=== PATIENT | male | born 1950 | race Caucasian/White ===

== ENCOUNTER 2017-04-30 22:42 | Emergency (ER) | payer OTHER ==
[~2017-04-30] VITALS: Ht 177.8 cm; Wt 93.0 kg
[2017-04-30] MEDS ORDERED: HYDROmorphone 2 MG/ML, 1ML IVPush PRN (23:30)
[2017-04-30] MEDS ORDERED: SODIUM CHLORIDE FLUSH 10ML SYR IVF ONE (23:30)
[2017-04-30] MEDS ORDERED: HYDROmorphone 1 MG/ML, 1ML ONE (23:31)
[2017-04-30 23:43] LABS: BASOPHILS # (AUTO) 0.08 x10^3/uL (0-0.1); BASOPHILS % (AUTO) 1 % (0-1); EOSINOPHILS # (AUTO) 0.11 x10^3/uL (0-0.4); EOSINOPHILS % (AUTO) 1 % (1-7); LYMPHOCYTES # (AUTO) 2.31 x10^3/uL (1-3.4); LYMPHOCYTES % (AUTO) 25 % (22-44); MD NO; MEAN CORPUSCULAR HEMOGLOBIN 29.4 pg (27.5-34.5); MEAN CORPUSCULAR HGB CONC 33.8 g/dL (33.2-36.2); MEAN CORPUSCULAR VOLUME 87.1 fL (81-97); MEAN PLATELET VOLUME 6.8 fL (7.4-10.4); MONOCYTES # (AUTO) 0.69 x10^3/uL (0.2-0.8); MONOCYTES % (AUTO) 7 % (2-9); NEUTROPHILS # (AUTO) 6.14 x10^3/uL (1.8-6.8); NEUTROPHILS % (AUTO) 66 % (42-75); PLATELET COUNT 267 x10^3/uL (130-400); RED BLOOD COUNT 5.08 x10^6/uL (4.38-5.82); RED CELL DISTRIBUTION WIDTH 14.9 % (9.4-14.8)
[2017-04-30 23:51] LABS: ALBUMIN 3.4 g/dL (3.4-5.0); ANION GAP 10 mmol/L (5-15); CALCIUM 8.7 mg/dL (8.5-10.1); CHLORIDE 105 mmol/L (98-107); CREATININE 1.08 mg/dL (0.7-1.3)
[2017-05-01] MEDS ORDERED: OMNIPAQUE 350 MG/ML, 100ML BOTTLE ONE (00:22)
[2017-05-01 00:50] VITALS: BP 127/82
== END 2017-05-01 02:21 | disposition home or self-care (01) ==
LOC: ED 05-01 02:00
DX: M25.552 Pain in left hip (principal); I10 Essential (primary) hypertension; Z86.14 Personal history of Methicillin resistant Staphylococcus aureus infection
CPT/HCPCS: 36415; 73701; 80048; 82040; 83605; 85025; 87040; 96374; 99285; J1170; Q9967

== ENCOUNTER 2017-05-02 02:12 | Emergency (ER) | payer OTHER ==
[~2017-05-02] VITALS: Ht 177.8 cm; Wt 71.0 kg
[2017-05-02] MEDS ORDERED: VANCOMYCIN 1,500 MG in SODIUM CHLORIDE 0.9% 250 ML IV ONE (02:30)
[2017-05-02] MEDS ORDERED: VANCOMYCIN PER PHARMACY IV ONE (02:30)
[2017-05-02] MEDS ORDERED: SODIUM CHLORIDE 0.9% 1,000ML IVBOLUS ONE (02:30)
[2017-05-02] MEDS ORDERED: LIDOCAINE 1%, 20ML ONE (03:00)
[2017-05-02 03:09] LABS: BASOPHILS # (AUTO) 0.06 x10^3/uL (0-0.1); BASOPHILS % (AUTO) 1 % (0-1); EOSINOPHILS # (AUTO) 0.18 x10^3/uL (0-0.4); EOSINOPHILS % (AUTO) 2 % (1-7); LYMPHOCYTES # (AUTO) 2.26 x10^3/uL (1-3.4); LYMPHOCYTES % (AUTO) 25 % (22-44); MD NO; MEAN CORPUSCULAR HEMOGLOBIN 29.8 pg (27.5-34.5); MEAN CORPUSCULAR HGB CONC 33.9 g/dL (33.2-36.2); MEAN CORPUSCULAR VOLUME 87.9 fL (81-97); MEAN PLATELET VOLUME 6.8 fL (7.4-10.4); MONOCYTES # (AUTO) 0.71 x10^3/uL (0.2-0.8); MONOCYTES % (AUTO) 8 % (2-9); NEUTROPHILS # (AUTO) 5.83 x10^3/uL (1.8-6.8); NEUTROPHILS % (AUTO) 65 % (42-75); PLATELET COUNT 264 x10^3/uL (130-400); RED BLOOD COUNT 4.82 x10^6/uL (4.38-5.82); RED CELL DISTRIBUTION WIDTH 14.8 % (9.4-14.8)
[2017-05-02 03:15] LABS: ALBUMIN 3.3 g/dL (3.4-5.0); ANION GAP 9 mmol/L (5-15); CHLORIDE 106 mmol/L (98-107); CREATININE 1.01 mg/dL (0.7-1.3)
[2017-05-02] MEDS ORDERED: LORazepam 2 MG/ML, 1ML ONE (03:20)
[2017-05-02] MEDS ORDERED: HYDROmorphone 2 MG/ML, 1ML IVPush PRN (03:30)
[2017-05-02] MEDS ORDERED: CEFAZOLIN PMX 1GM/50ML 50 ML IVPB ONE (03:30)
[2017-05-02] MEDS ORDERED: ONDANSETRON 2MG/ML, 2ML ONE (03:47)
[2017-05-02] MEDS ORDERED: DIPH,PERTUSS(ACELL),TET VAC/PF 0.5 ML IM-VACC ONE (03:47)
[2017-05-02] MEDS ORDERED: PANTOPRAZOLE 40 MG IV ONE (03:55)
[2017-05-02] MEDS ORDERED: HYDROmorphone 2 MG/ML, 1ML ONE (04:14)
[2017-05-02] MEDS ORDERED: CEFAZOLIN PMX 1GM/50ML 50 ML ONE (04:15)
[2017-05-02 06:40] VITALS: BP 164/103
== END 2017-05-02 06:58 | disposition home or self-care (01) ==
LOC: ED 02:48
DX: R78.81 Bacteremia (principal); Z00.00 Encounter for general adult medical examination without abnormal findings; I10 Essential (primary) hypertension; M25.552 Pain in left hip; M25.521 Pain in right elbow; F17.200 Nicotine dependence, unspecified, uncomplicated
CPT/HCPCS: 36415; 71045; 80048; 82040; 83605; 84145; 85025; 87040; 96365; 96368; 96375; 99285; J0690; J1170; J3370; J7030; J7050

== ENCOUNTER 2017-05-14 15:47 | Emergency (ER) | payer OTHER ==
[~2017-05-14] VITALS: Ht 177.8 cm; Wt 88.2 kg
[2017-05-14 15:53] VITALS: BP 142/91
[2017-05-14] MEDS ORDERED: OXYcodone/APAP 5/325MG TABLET PO ONE (16:30)
[2017-05-14] MEDS ORDERED: KETOROLAC 30 MG/1 ML IM ONE (16:30)
[2017-05-14] MEDS ORDERED: OXYcodone/APAP 5/325MG TABLET ONE (16:39)
[2017-05-14] MEDS ORDERED: KETOROLAC 30 MG/1 ML ONE (16:39)
== END 2017-05-14 17:30 | disposition home or self-care (01) ==
LOC: ED 17:00
DX: G89.29 Other chronic pain (principal); M25.552 Pain in left hip; Z96.642 Presence of left artificial hip joint; I10 Essential (primary) hypertension; E03.9 Hypothyroidism, unspecified; F32.9 Major depressive disorder, single episode, unspecified; Z86.14 Personal history of Methicillin resistant Staphylococcus aureus infection
CPT/HCPCS: 73502; 96372; 99284; J1885

== ENCOUNTER 2017-06-01 16:34 | Emergency (ER) | payer OTHER ==
[~2017-06-01] VITALS: Ht 177.8 cm; Wt 91.0 kg
[2017-06-01 16:35] VITALS: BP 168/114
[2017-06-01] MEDS ORDERED: IBUPROFEN 200 MG TABLET PO ONE (18:00)
[2017-06-01] MEDS ORDERED: HYDROcodone/APAP 5/325 TABLET PO ONE (18:00)
[2017-06-01] MEDS ORDERED: IBUPROFEN 200 MG TABLET ONE (18:04)
[2017-06-01] MEDS ORDERED: HYDROcodone/APAP 5/325 TABLET ONE (18:05)
[2017-06-01] MEDS ORDERED: TRAZ50TA18 PO (18:08)
[2017-06-01] MEDS ORDERED: GABA300C10 PO (18:08)
[2017-06-01] MEDS ORDERED: LEVO25TA4 PO (18:08)
[2017-06-01] MEDS ORDERED: BUSP10TA PO (18:08)
[2017-06-01] MEDS ORDERED: SERT100T5 PO (18:11)
== END 2017-06-01 19:33 | disposition home or self-care (01) ==
LOC: ED 18:13
DX: M16.12 Unilateral primary osteoarthritis, left hip (principal); G89.29 Other chronic pain
CPT/HCPCS: 99283